=== PATIENT | female | born 1995 | race Caucasian/White ===

== ENCOUNTER 2020-04-27 13:27 | Emergency (ER) | payer OTHER ==
[~2020-04-27] VITALS: Ht 165.1 cm; Wt 75.0 kg
[2020-04-27] MEDS ORDERED: LEVETIRACETAM 1000MG/100ML 100 ML IV ONE (14:00)
[2020-04-27 14:10] LABS: BASOPHILS % 0.7 % (0.0-2.0); EOSINOPHILS % 1.1 % (0.0-5.0); HEMATOCRIT. 36.7 % (36.0-48.0); HEMOGLOBIN. 12.4 g/dL (12.0-16.0); LYMPHOCYTES % 12.1 % (20.0-50.0); MEAN CORPUSCULAR HEMOGLOBIN 32.6 pg (28.0-32.0); MEAN CORPUSCULAR VOLUME 96.7 fL (81.0-99.0); MEAN PLATELET VOLUME 8.4 fl (7.4-10.4); MONOCYTES % 7.1 % (2.0-8.0); PLATELET 388 x1000/uL (130-400); RED BLOOD CELL COUNT 3.79 mill/uL (4.2-5.4); RED CELL DISTRIBUTION WIDTH 13.6 % (11.6-14.6)
[2020-04-27 14:43] LABS: CHLORIDE 110 mEq/L (98-107)
[2020-04-27 14:48] LABS: ETHANOL BLOOD < 10 mg/dL
[2020-04-27 17:25] VITALS: BP 112/55
== END 2020-04-28 17:45 | disposition home or self-care (01) ==
LOC: ER 13:33
DX: G40.909 Epilepsy, unspecified, not intractable, without status epilepticus (principal); R51 Headache; F19.10 Other psychoactive substance abuse, uncomplicated; I49.9 Cardiac arrhythmia, unspecified; Z98.890 Other specified postprocedural states
CPT/HCPCS: 36415; 80053; 80320; 83735; 84100; 85025; 93005; 96365; 96366; 99284; J1953; G0480